=== PATIENT | female | born 1975 | race Caucasian/White ===

== ENCOUNTER 2023-09-10 07:45 | Inpatient (IN) | payer OTHER ==
[~2023-09-10] VITALS: Ht 158.8 cm; Wt 71.7 kg
[~2023-09-10 07:45] MED LIST: DOXYCYCLINE HY100 MG PO; NAPROXEN500 MG PO; PRENATABS FA TA1 TAB
[2023-09-10 09:31] LABS: HEMATOCRIT 38.8 % (36.0-45.00); HEMOGLOBIN 13.1 g/dL (12.0-15.00); MEAN CELL VOLUME 80.3 fL (80.00-100.00); MEAN CORPUSCULAR HEMOGLOBIN 27.1 pg (27.00-32.0); MEAN CORPUSCULAR HGB CONC 33.8 g/dl (32.0-36.0); PLATELET COUNT 276 K/uL (150-450); RED BLOOD COUNT 4.83 M/uL (4.00-6.00); RED CELL DISTRIBUTION WIDTH 14.1 % (11.5-14.5)
[2023-09-10 09:57] LABS: INR 1.05; PARTIAL THROMBOPLASTIN TIME 27.8 SECONDS (22.0-34.0)
[2023-09-10 10:20] LABS: ALBUMIN 3.8 gm/dL (3.4-5.0); BILIRUBIN TOTAL 0.59 mg/dL (0.3-1.2); CALCIUM 9.5 mg/dL (8.5-10.1); CREATININE SERUM 0.59 mg/dL (0.55-1.02); GFR 109.73; GLOBULINA 3.8 G/DL (2.4-3.5); POTASSIUM 4.47 mEq/L (3.5-5.1); TOTAL PROTEIN 7.6 gm/dL (6.4-8.2)
[2023-09-10 10:31] LABS: PH,URINE 5.5 (5.0-8.0); URINE APPEARANCE Cloudy; URINE BILIRRUBIN Negative (NEGATIVE); URINE BLOOD Negative; URINE COLOR Yellow; URINE GLUCOSE Negative (NEGATIVE); URINE LEUKOCYTE Small; URINE NITRATE Negative; URINE PROTEIN Negative (NEGATIVE); URINE UROBILINOGEN 0.2 E.U./dl
[2023-09-10 10:35] LABS: URINE EPITHELIAL CELLS 51.4 uL (0.0-38.8); URINE RBC 14.6 uL (0.0-20.8); URINE WBC 91.6 uL (0.0-23.2)
[2023-09-13 18:45] LABS: HEMATOCRIT 35.9 % (36.0-45.00); MEAN CELL VOLUME 81.6 fL (80.00-100.00); MEAN CORPUSCULAR HEMOGLOBIN 27.2 pg (27.00-32.0); MEAN CORPUSCULAR HGB CONC 33.4 g/dl (32.0-36.0); PLATELET COUNT 255 K/uL (150-450); RED CELL DISTRIBUTION WIDTH 13.5 % (11.5-14.5)
[2023-09-14] MEDS ORDERED: TRAM1TAB98 PO (08:58)
[2023-09-14] MEDS ORDERED: PEPCID AC20 MG PO (08:59)
[2023-09-14] MEDS ORDERED: KETO10TA2 PO (08:59)
== END 2023-09-14 10:44 | disposition home or self-care (01) | DRG 743 ==
LOC: OB/GYN 09-13 07:00 → O/R 09-13 09:10 → OB/GYN 09-13 09:10
PROVIDERS: ADMIT Obstetrics & Gynecology; ATTEND Obstetrics & Gynecology
PROC: 0UT7FZZ Resection of Bilateral Fallopian Tubes, Via Natural or Artificial Opening With Percutaneous Endoscopic Assistance (ICD-10-PCS; 2023-09-13)
PROC: 0TJB8ZZ Inspection of Bladder, Via Natural or Artificial Opening Endoscopic (ICD-10-PCS; 2023-09-13)
PROC: 0UT9FZZ Resection of Uterus, Via Natural or Artificial Opening With Percutaneous Endoscopic Assistance (ICD-10-PCS; principal; 2023-09-13 07:00)
DX: D25.1 Intramural leiomyoma of uterus (principal); N80.03 Adenomyosis of the uterus; Z20.822 Contact with and (suspected) exposure to COVID-19; N81.11 Cystocele, midline; N92.0 Excessive and frequent menstruation with regular cycle; N92.1 Excessive and frequent menstruation with irregular cycle; N84.0 Polyp of corpus uteri